=== PATIENT | male | born 1960 | race Asian ===

== ENCOUNTER 2024-08-01 16:53 | Emergency (ER) | payer OTHER ==
[~2024-08-01] VITALS: Ht 154.9 cm; Wt 55.9 kg
[2024-08-01 17:05] VITALS: TEMP 97.9
[2024-08-01] MEDS ORDERED: TELM20 PO (17:09)
[2024-08-01] MEDS ORDERED: IOHEXOL 350 MG/ML 100 ML VIAL ONE (18:12)
[2024-08-01] MEDS ORDERED: SODIUM CHLORIDE 0.9% 100 ML ONE (18:12)
[2024-08-01 18:27] LABS: ANION GAP 13 mmol/L (8-16); CALCIUM, TOTAL 9.2 mg/dL (8.8-10.5); CARBON DIOXIDE 23 mmol/L (22-29); CHLORIDE 105 mmol/L (98-107); CREATININE 1.32 mg/dL (0.60-1.30); GLOMERULAR FILTR. RATE CALC 54 mL/min (>60); GLUCOSE,RANDOM 140 mg/dL (70-110); POTASSIUM 3.8 mmol/L (3.5-5.1); SODIUM SERUM 141 mmol/L (136-145); UREA NITROGEN, BLOOD 21 mg/dL (7-18)
[2024-08-01 18:29] LABS: BASOPHILS % (AUTO) 0.6 % (0.0-2.0); HEMATOCRIT 40.8 % (41-53); HEMOGLOBIN 13.7 g/dL (13.5-17.5); LYMPHOCYTES # (AUTO) 2.5 K/uL (1.0-4.8); MEAN CORPUSCULAR HEMOGLOBIN 31.9 pg (26.0-34.0); MEAN CORPUSCULAR HGB CONC 33.5 G/dL (31.0-37.0); MEAN CORPUSCULAR VOLUME 95 fL (80-100); MONOCYTES # (AUTO) 0.5 K/uL (0.1-1.0); MONOCYTES % (AUTO) 5.8 % (2.0-9.0); NEUTROPHILS # (AUTO) 6.3 K/uL (1.8-7.7); NEUTROPHILS % (AUTO) 66.6 % (40.0-70.0); PLATELET COUNT (AUTO) 269 K/uL (150-450); RED BLOOD CELL COUNT(AUTO) 4.29 MIL/uL (4.50-5.90); RED CELL DISTRIBUTION WIDTH 13.2 % (11.5-14.5); WHITE BLOOD COUNT (AUTO) 9.4 K/uL (4.5-11.0)
[2024-08-01 18:33] LABS: ALBUMIN 3.7 g/dL (3.4-5.0); BILIRUBIN,DIRECT 0.1 mg/dL (0.00-0.20); BILIRUBIN,TOTAL 0.4 mg/dL (0.1-1.0); TOTAL PROTEIN, SERUM 8.4 g/dL (6.4-8.2)
[2024-08-01 18:37] LABS: TROPONIN I-HIGH SENSITIVITY 6 ng/L (<76)
[2024-08-01 19:00] VITALS: BP 124/77; PULSE 76; RESP 18; O2SAT 99
== END 2024-08-01 19:25 | disposition home or self-care (01) ==
LOC: EMS 16:53
DX: S16.1XXA Strain of muscle, fascia and tendon at neck level, initial encounter (principal); I10 Essential (primary) hypertension; Z90.49 Acquired absence of other specified parts of digestive tract; Z79.899 Other long term (current) drug therapy; V89.2XXA Person injured in unspecified motor-vehicle accident, traffic, initial encounter; Y93.89 Activity, other specified; Y92.89 Other specified places as the place of occurrence of the external cause; Y99.8 Other external cause status
CPT/HCPCS: 99285; 74177; 71045; 80048; 80076; 84484; 85025; 36415; 93005; Q9967; J7050

== ENCOUNTER 2025-01-22 08:55 | Emergency (ER) | payer OTHER ==
[~2025-01-22] VITALS: Ht 165.1 cm; Wt 65.9 kg
[~2025-01-22 08:55] MED LIST: TELM20 PO
[2025-01-22 09:00] VITALS: TEMP 98.4
[2025-01-22] MEDS ORDERED: ROSU20TA98 PO (09:08)
[2025-01-22] MEDS ORDERED: TAMS0.4C94 PO (09:08)
[2025-01-22] MEDS: IBUPROFEN 600 MG TABLET PO ONE (10:00)
[2025-01-22] MEDS: COLCHICINE 0.6 MG TABLET PO ONE (10:00)
[2025-01-22] MEDS ORDERED: IBUP-1554 PO (10:41)
[2025-01-22] MEDS ORDERED: OMEP-148 PO (10:41)
[2025-01-22] MEDS ORDERED: ACET-2080 PO (10:41)
[2025-01-22] MEDS ORDERED: COLC-3 PO (10:41)
[2025-01-22 10:55] VITALS: BP 133/85; PULSE 83; RESP 16; O2SAT 99
== END 2025-01-22 11:11 | disposition home or self-care (01) ==
LOC: EMS 08:56
DX: M10.9 Gout, unspecified (principal); N28.9 Disorder of kidney and ureter, unspecified; I10 Essential (primary) hypertension; Z90.49 Acquired absence of other specified parts of digestive tract
CPT/HCPCS: 99283